=== PATIENT | male | born 1950 | race Caucasian/White ===

== ENCOUNTER 2021-12-26 09:48 | Day surgery (SDC) | payer OTHER, BC ==
[2021-12-26] MEDS ORDERED: NA CHLORIDE 0.9% 1,000 ML ONE (09:54)
[2021-12-26] MEDS ORDERED: SCOPOLAMINE HYDROBROMIDE PATCH TD ONE (10:52)
[2021-12-26] MEDS ORDERED: FENTANYL CITR 100 MCG/2 ML ONE (10:52)
[2021-12-26] MEDS ORDERED: propofoL 200 MG/20 ML VIAL IV ONE (10:52)
[2021-12-26] MEDS ORDERED: MIDAZOLAM HCL 2 MG/2 ML INJ ONE (10:52)
[2021-12-26] MEDS ORDERED: dexAMETHasone 10 MG/ML VIAL ONE (10:52)
[2021-12-26] MEDS ORDERED: LIDOCAINE 2% MPF 5 ML VIAL ONE (10:53)
[2021-12-26] MEDS ORDERED: ONDANSETRON 4 MG/2 ML VIAL ONE (11:26)
[2021-12-26] MEDS: LIDOCAINE 1% W/EPI 1:100,000 MDV 20 ML VIAL ONE ×2 (11:30→11:43)
[2021-12-26] MEDS ORDERED: Phenylephrine HCl 10 MG/ML 1 ML VIAL ONE (11:38)
[2021-12-26] MEDS ORDERED: EPHEDRINE SULF 50 MG/ML VIAL ONE (11:53)
[2021-12-26 12:53] VITALS: TEMP 97
--- NOTE | 2021-12-26 13:04 | P.OP ---
Rehabilitation Counsellor: NONE,NONE Preoperative diagnosis: Basal cell carcinoma, skin of right nasal dorsum Postoperative diagnosis: Same Primary procedure: Excision with layered closure Anesthesia: General via laryngeal mask airway Estimated blood loss: 5 mL Specimen: Nasal dorsum, suture vyas 12:00; sent to frozen section pathology Findings: Negative margins. Pathology confirms biopsy change and scar with no residu Operative Technique: The patient was brought to the operating room. He was placed under general anesthesia via oral endotracheal tube. The head of bed was turned 45 degrees for better exposure of the right nose. The prior biopsy site was visualized and appeared to be a somewhat depressed scar. The area was injected with approximately 3 mL of 1% lidocaine with epinephrine. The face was prepped and draped in standard fashion using Betadine. The biopsy site was examined and a 2 to 3 mm margin was designed around the biopsy site. A 15 C blade scalpel was used to incise through the skin and subcutaneous tissue. A suture was placed within the specimen at the superiormost aspect of the specimen to designate 12:00 for pathology orientation. The specimen was then sharply divided from the underlying fatty tissue. The specimen was sent to pathology for frozen section diagnosis. While awaiting results, hemostasis was achieved using needlepoint Bovie electrocautery. The defect was approximately 7 mm round involving the skin and subcutaneous tissue. After conferring with the pathologist and confirming negative margins, the surrounding tissues were undermined several millimeters and a small burrows triangle was removed from approximately the 7:00 margin in order to allow for linear closure. The deep tissues were approximated with 4-0 Vicryl suture. The dermis and epidermis was closed in a running fashion using 5-0 fast absorbing gut sutures. The surrounding area was cleaned and dried. Triple antibiotic ointment was applied but no dressing was necessary. Patient was returned to care of anesthesia for extubation in the operating room which proceeded without difficulty. Complications: None Implants: None Fluids & blood products: Crystalloid, see anesthesia record Transferred to: Recovery Room Condition: Good
[2021-12-26 14:36] VITALS: BP 105/54; O2SAT 95
== END 2021-12-26 13:45 | disposition home or self-care (01) ==
LOC: OR 09:48
PROVIDERS: ATTEND Otolaryngology
PROC: 0HB1XZZ Excision of Face Skin, External Approach (ICD-10-PCS; principal; 2021-12-26 11:30)
DX: C44.311 Basal cell carcinoma of skin of nose (principal); Z72.0 Tobacco use; Z20.822 Contact with and (suspected) exposure to COVID-19
CPT/HCPCS: 82947; 88331; 88305; 11106; U0002; J2704; J2370; J2250; J3010; J7030; J2405; J1100

== ENCOUNTER 2024-04-28 05:53 | Day surgery (SDC) | payer OTHER, BC ==
[2024-04-27 09:23] LABS: Absolute Eosinophils 0.2 K/uL (0-0.5); Absolute Lymphocytes (CBC) 1.4 K/uL (0.7-4.9); Absolute Monocytes 0.4 K/uL (0.1-1.3); Absolute Neutrophil 3.8 K/uL (1.8-8.0); Basophils % 0.6 % (0-1.3); Eosinophils % 3.7 % (0-4.4); Hematocrit 44.3 % (39.6-49.0); Hemoglobin 14.8 g/dL (13.6-17.9); Lymphocytes % 24.2 % (15.3-44.8); MCH 32.6 pg (27.0-35.0); MCHC 33.3 g/dL (32.0-36.0); MCV 97.9 fL (80-100); MPV 7.7 fL (7.6-11.3); Monocytes % 7.3 % (3.3-12.3); Neutrophils % 64.2 % (41.7-73.7); Nucleated Red Blood Cells % 0.1 % (0-0); Platelets 231 thou/uL (152-406); RBC Red Blood Cell Count 4.52 M/uL (4.33-5.43); Red Cell Distribution Width 14.8 % (12.1-15.2)
--- NOTE | 2024-04-27 09:38 | RAD REPORT ---
EXAM DESCRIPTION: Efra Orlando (2 Views)04/27/2024 9:07 am CLINICAL HISTORY: Preop for hernia surgery. Hypertension COMPARISON: 2012 FINDINGS: Lungs are moderately hyperaerated. The lungs appear clear of acute infiltrate. The heart is normal size IMPRESSION: No acute abnormalities displayed
[2024-04-28] MEDS: NA CHLORIDE 0.9% 1,000 ML ONE (07:06)
[2024-04-28] MEDS ORDERED: LIDOCAINE 1% MPF 5 ML VIAL ONE (07:20)
[2024-04-28] MEDS ORDERED: propofoL 200 MG/20 ML VIAL IV ONE (07:20)
[2024-04-28] MEDS ORDERED: MIDAZOLAM HCL 2 MG/2 ML INJ ONE (07:21)
[2024-04-28] MEDS ORDERED: FENTANYL CITR 100 MCG/2 ML ONE (07:21)
[2024-04-28] MEDS ORDERED: ROCURONIUM 50 MG/5 ML VIAL IV ONE (07:22)
[2024-04-28] MEDS ORDERED: ONDANSETRON 4 MG/2 ML VIAL ONE (07:23)
[2024-04-28] MEDS: CEFAZOLIN SODIUM 2 GM/VIAL ONE (07:37)
[2024-04-28] MEDS ORDERED: dexAMETHasone 10 MG/ML VIAL ONE (07:54)
[2024-04-28] MEDS ORDERED: EPHEDRINE SULF 50 MG/ML VIAL ONE (07:55)
[2024-04-28] MEDS: BUPIVACAINE 0.5% PF 10 ML VIAL ONE (07:57)
[2024-04-28] MEDS ORDERED: Mastisol Adhesive Liq ONE (09:15)
--- NOTE | 2024-04-28 09:20 | P.OP ---
Date of Service: 04/28/24 Preop diagnosis: Bilateral inguinal hernia Postop diagnosis: Same Procedure performed: Repair of bilateral inguinal hernia Surgeon: Damion Kramer MD Locks Tender: Stacey AYALA Estimated blood loss: Minimal Specimen: Hernia sac and cord lipoma on the right side and a cord lipoma on the left side Findings: Indirect hernia sac on the right side and a direct inguinal hernia on the left side Anesthesia: General Complications: None Drains: None Fluids and blood products: Nonapplicable Disposition: Recovery room Operative note: Patient brought to the OR and placed in supine position. General anesthesia began. Patient prepped and draped in usual sterile fashion. Marcaine 0.5% infiltrated in a field block fashion. 15 blade used to make a 4 cm incision between the anterior iliac superior spine and pubic tubercle on the right side. Subcutaneous tissue divided and bleeding controlled cautery. Shimon's fascia identified and divided. Aponeurosis identified and mobilized inferiorly to expose the shelving edge. Aponeurosis opened through the external ring. Ilioinguinal nerve identified and retracted out of the field of dissection. Cord mobilized at the pubic tubercle and skeletonized. A large indirect sac and a cord lipoma identified. High ligation of the sac with 2-0 Prolene suture ligature and freehand tie accomplished. 2-0 chromic used to tie off the base of the cord lipoma. Both structures excised and sent to pathology as specimen. The inguinal floor was somewhat patulous. 2-0 Prolene was used to create a new inguinal floor by joint the conjoined tendon to the shelving edge and beginning from the pubic tubercle to create a new internal ring. Marlex mesh plug placed in the internal ring and secured with VersaTack stapler. Onlay mesh placed on the inguinal floor and secured medially to the pubic tubercle, superior to the conjoined tendon, inferiorly to the shelving edge and laterally to each other. Cord structures ilioinguinal nerve placed back in anatomic location. 2-0 Prolene used to close the aponeurosis. 3-0 chromic used to approximate Shimon's fascia. 3-0 chromic used to reapproximate subcutaneous tissue and close skin. Same exact operation occurred on the left side but the findings were slightly different. There was no indirect hernia sac present on the left side. The repair was exactly the same. After both wounds were closed, sterile dressing was applied. Patient was awakened and taken to recovery room in good general condition. CC: Dr. Bettencourt's office
[2024-04-28] MEDS ORDERED: GLYCOPYRROLATE 0.2 MG/ML SYR ONE (09:27)
[2024-04-28] MEDS ORDERED: NEOSTIGMINE 1 MG/ML -10 ML VIAL ONE (09:27)
[2024-04-28] MEDS: HYDROMORPHONE HCL 1 MG/ML INJ ONE ×2 (09:52→10:07)
[2024-04-28] MEDS ORDERED: HYDROMORPHONE HCL 1 MG/ML INJ ONE (10:26)
[2024-04-28] MEDS ORDERED: HYDROCODONE/APAP 7.5/325 MG TAB ONE ×2 (11:14→13:12)
[2024-04-28] MEDS: HYDROCODONE/APAP 7.5/325 MG TAB PO PRN (11:17)
[2024-04-28] MEDS: NA CHLORIDE 0.9% 500 ML ONE ×2 (12:46→14:00)
[2024-04-28] MEDS: HYDROCODONE/APAP 7.5/325 MG TAB PO ONE (13:17)
[2024-04-28 14:23] VITALS: BP 114/52; TEMP 97; O2SAT 92
[2024-04-28] MEDS: ONDANSETRON 4 MG/2 ML VIAL ONE (14:49)
[2024-04-28] MEDS: PROMETHAZINE INJ 25 MG/ML AMP ONE (16:34)
== END 2024-04-28 16:55 | disposition home or self-care (01) ==
LOC: OR 05:53
PROVIDERS: ATTEND Surgery
PROC: 0YUA0JZ Supplement Bilateral Inguinal Region with Synthetic Substitute, Open Approach (ICD-10-PCS; principal; 2024-04-28 07:30)
DX: K40.20 Bilateral inguinal hernia, without obstruction or gangrene, not specified as recurrent (principal); I25.10 Atherosclerotic heart disease of native coronary artery without angina pectoris; Z95.5 Presence of coronary angioplasty implant and graft; E11.9 Type 2 diabetes mellitus without complications; I10 Essential (primary) hypertension; F17.210 Nicotine dependence, cigarettes, uncomplicated
CPT/HCPCS: 85025; 36415; 82947 ×2; 88302; 71046; 49505; J2550; J2704; J2710; J2001; J2250; J3010; J1100; J1170 ×3; J2405 ×2; J7040 ×2; J7030